=== PATIENT | male | born 1945 | race Asian ===

== ENCOUNTER → 2019-02-17 | Outpatient (CLI) | payer MEDICARE ==
[~2019-02-17] MED LIST: ATENOLOL50 MG PO; SIMVASTATIN40 MG PO
--- NOTE | 2019-02-17 13:33 | Diagnostic Imaging Report ---
Thyroid ultrasound CPT code: 28300 History: Thyroid nodules Comparison: Thyroid ultrasounds of 03/17/2013 and 06/26/2016 Findings: The thyroid echotexture is normal. Vascularity is normal. The right lobe measures 4.0 x 1.8 x 1.5 cm. The left lobe measures 3.2 x 1.4 x 1.4 cm. The isthmus measures 0.3 cm. Nodules (measurements are AP, transverse, craniocaudal): Right Lobe: Upper pole 1.4 x 0.9 x 1.4 cm isoechoic, well-circumscribed, wider than tall, predominantly solid nodule without internal calcifications has increased in size, previously measuring 1.1 x 0.8 x 1.1 cm. Left Lobe: Upper pole 1.1 x 0.6 x 0.7 cm isoechoic, well-circumscribed, wider than tall, predominantly solid nodule with microcalcifications previously measured 1.0 x 0.5 x 0.8 cm. Lower pole isoechoic 0.7 x 0.8 x 0.7 cm predominantly solid, well-circumscribed, wider than tall nodule without internal calcifications previously measured 0.7 x 0.4 x 0.7 cm. Mid pole isoechoic 0.5 x 0.3 x 0.4 cm well-circumscribed predominantly solid nodule without internal calcifications was not seen on prior studies. Isthmus: No cystic mass or discrete solid nodule identified. Lymph Nodes: No cervical lymph nodes are identified. Parathyroids: Not visualized. IMPRESSION: Interval increase in size of right thyroid nodule (TIRADS 3) New left thyroid mid pole nodule (TIRADS 3) No significant change in remaining left thyroid nodules (Upper pole TIRADS 4, lower pole TIRADS 3) ACR glossary of thyroid rads TI-RADS 1: No focal lesion. TI-RADS 2: Not suspicious. TI-RADS 3: Mildly suspicious (recommend FNA is greater than or equal to 2.5 cm; follow-up at 1, 3, and 5 years if greater than or equal to 1.5 cm) TI-RADS 4: Moderately Suspicious (recommend FNA is greater than or equal to 1.5 cm; follow-up at 1, 2, 3, and 5 years) TI-RADS 5: Highly suspicious (recommend FNA is greater than or equal to 10 mm) TI-RADS 6: Biopsy-proven malignancy Signed by: Brayden Meyer MD on 02/17/2019 1:30 PM
== END ==
LOC: US 10:53
PROVIDERS: ATTEND Family Medicine
DX: E04.2 Nontoxic multinodular goiter (principal)
CPT/HCPCS: 76536

== ENCOUNTER → 2019-11-24 | Outpatient (CLI) | payer MEDICARE ==
--- NOTE | 2019-11-24 22:14 | Diagnostic Imaging Report ---
EXAM: Thyroid Ultrasound INDICATION: ^RIGHT THYROID MASS COMPARISON: Thyroid ultrasound 06/26/2016 TECHNIQUE: Transverse and sagittal images were obtained of the thyroid gland. FINDINGS: Thyroid gland: Size: Right lobe: 4.1 x 1.8 x 1.7 cm, Normal in size Left lobe: 3.9 x 1.5 x 1.3 cm, Normal in size Isthmus: 0.4 cm, Normal in size Appearance: Homogeneous echotexture without increased vascularity Masses/Nodules: Right lobe: 1.5 x 1.2 x 1.2 cm solid (2 pts) nodule in the interpolar region with smooth margin (0 pts), [id number] (0 pts), isoechoic (1 pt), and no calcifications (0 pts). Previously 1.1 x 0.8 x 1.1 cm. TR3b (1.5-2.5 cm), Mildly Suspicious: Follow at 1, 3, 5 years. Left lobe: 1.0 x 0.6 x 1.0 cm solid (2 pts) nodule in the interpolar region with smooth margin (0 pts), [id number] (0 pts), isoechoic (1 pt), and no calcifications (0 pts). Previously 1.0 x 0.5 x 0.8 cm. TR3a (<1.5 cm): No follow-up. 0.8 x 0.5 x 0.8 cm solid (2 pts) nodule in the interpolar region with smooth margin (0 pts), [id number] (0 pts), isoechoic (1 pt), and no calcifications (0 pts). Previously not visualized . TR3a (<1.5 cm): No follow-up. 0.7 x 0.6 x 0.8 cm solid (2 pts) nodule in the interpolar region with smooth margin (0 pts), [id number] (0 pts), isoechoic (1 pt), and no calcifications (0 pts). Previously 0.7 x 0.4 x 0.7 cm. TR3a (<1.5 cm): No follow-up. Parathyroid: No focal parathyroid masses. Lymph nodes: No adenopathy. Additional images region of the right parotid in area of palpable abnormality showed normal-appearing, normal-sized lymph nodes which measure 1.0 x 0.5 cm and 1.9 x 0.8 x 1.1 cm, and show normal fatty mee IMPRESSION: 1. Normal sized and appearing lymph nodes are identified in the region of palpable abnormality. 2. Slight interval increase in size of 1.5 cm mildly suspicious nodule in the right interpolar region, for which ultrasound follow-up is recommended in 1 years document stability. TR3b (1.5-2.5 cm), Mildly Suspicious: Follow at 1, 3, 5 years. 3. Left-sided nodules are relatively stable and require no further follow-up. TI-RADS Lexicon: TR1, Benign: No FNA TR2, Not Suspicious: No FNA. TR3a (<1.5 cm): No follow-up. TR3b (1.5-2.5 cm), Mildly Suspicious: Follow at 1, 3, 5 years. TR3c (>2.5 cm), Mildly Suspicious: FNA. TR4a (<1.0 cm): No follow-up. TR4b (1.0-1.5 cm), Moderately Suspicious: Follow at 1, 2, 3, 5 years. TR4c (>1.5 cm), Moderately Suspicious: FNA. TR5a (<0.5 cm): No follow-up. TR5b (0.5-1.0 cm), Highly Suspicious: Follow at 1, 2, 3, 4, 5 years. TR5c (>1.0 cm), Highly Suspicious: FNA. *Rebiopsy if new suspicious features *No recommendation at this time for significant interval growth. Nodule Characteristics: * Benign features: cystic, hyperechoic, comet-tail artifact, complete halo * Minor suspicious features: solid, hypoechoic, other calcifications * Major suspicious features: microcalcifications, marked hypoechoic (less than strap muscle), suspicious lymph nodes, taller than wide, lobulated or ill-defined margins. Literature: ACR Thyroid Imaging, Reporting and Data System (TI-RADS): White Paper of the ACR TI-RADS Committee. J Am Jose Radiol 2017. Signed by: Dr. Yaniv Dejesus M.D. on 11/24/2019 10:11 PM
== END ==
LOC: US 15:44
PROVIDERS: ATTEND Internal Medicine
DX: E04.9 Nontoxic goiter, unspecified (principal)
CPT/HCPCS: 76536

== ENCOUNTER → 2020-08-18 | Day surgery (SDC) | payer MEDICARE ==
[2020-08-15 12:10] LABS: BASOPHILS % 0.4 % (0.0-1.0); EOSINOPHILS # (AUTO) 0.1 (0.0-0.4); EOSINOPHILS % 1.8 % (0.0-6.0); HEMATOCRIT 42.8 % (38.2-49.6); LYMPHOCYTES % 27.7 % (18.0-39.1); MEAN CORPUSCULAR HEMOGLOBIN 30.6 pg (28-32); MEAN CORPUSCULAR HGB CONC 32.7 g/dL (31-35); MEAN CORPUSCULAR VOLUME 93.7 fL (81-99); MONOCYTES # (AUTO) 1.3 (0.2-0.8); MONOCYTES % 18.8 % (4.4-11.3); NEUTROPHILS # (AUTO) 3.5 (2.1-6.9); NEUTROPHILS % 50.3 % (38.7-80.0); PLATELET COUNT 273 x10e3/uL (140-360); RED BLOOD COUNT 4.57 x10e6/uL (4.3-5.7); RED CELL DISTRIBUTION WIDTH 12.4 % (11.7-14.4)
[2020-08-15 12:23] LABS: ANION GAP 14.1 mmol/L (8-16); BLOOD UREA NITROGEN 16 mg/dL (7-26); BUN/CREATININE RATIO 15 (6-25); CALCIUM 9.4 mg/dL (8.4-10.2); CARBON DIOXIDE 24 mmol/L (22-29); CHLORIDE 110 mmol/L (98-107); CREATININE, SERUM 1.06 mg/dL (0.72-1.25); EST GLOMERULAR FILTRATION RATE > 60 ML/MIN (60-); GLUCOSE 108 mg/dL (74-118); POTASSIUM 5.1 mmol/L (3.5-5.1); SODIUM 143 mmol/L (136-145)
[~2020-08-18] MED LIST changes: +LIDOCAINE HCL 2% LOCAL INJ 5 ML SDV VIAL INJ ONE; +LOSARTAN POTASS25 MG PO; +METOPROLOL SUCC50 MG PO; +PANTOPRAZOLE SO40 MG PO; +PLAVIX75 MG PO; +PRAVACHOL40 MG PO; +PROPOFOL IV EMULSION 10 MG/ML 20 ML VIAL ONE
[2020-08-18 09:40] VITALS: BP 117/69
== END | disposition home or self-care (01) ==
LOC: OR 06:23
PROVIDERS: ATTEND Surgery
DX: Z12.11 Encounter for screening for malignant neoplasm of colon (principal); K21.9 Gastro-esophageal reflux disease without esophagitis; E78.5 Hyperlipidemia, unspecified; I10 Essential (primary) hypertension; F17.210 Nicotine dependence, cigarettes, uncomplicated; Z01.810 Encounter for preprocedural cardiovascular examination; Z01.812 Encounter for preprocedural laboratory examination; Z01.818 Encounter for other preprocedural examination; Z20.822 Contact with and (suspected) exposure to COVID-19; Z79.02 Long term (current) use of antithrombotics/antiplatelets
CPT/HCPCS: 36415; 71046; 80048; 85025; 93005; G0121; J2001; J2704; U0002; 45378